=== PATIENT | male | born 1940 | race Caucasian/White ===

== ENCOUNTER 2017-09-17 11:00 | Outpatient (CLI) | payer MEDICARE ==
[2017-09-17 12:50] LABS: #Lymphocytes 1.7 thou/uL (1.20-3.40); #Monocytes 0.4 thou/uL (0.11-0.59); #Neutrophils 1.7 thou/uL (1.40-6.50); %Basophils 0.6 % (0.0-1.0); %Eosinophils 0.8 % (0.0-10.0); %Lymphocytes 43.5 % (21.0-51.0); %Monocytes 10.4 % (0.0-10.0); %Neutrophils 44.8 % (42.0-75.0); Hemoglobin 12.9 g/dL (14.0-18.0); Mean Platelet Volume 8.1 fL (7.4-10.4); Platelet Count 209 thou/uL (130-400); RBC Distribution Width 11.6 % (11.5-14.5); Red Blood Cell (RBC) Count 3.68 mill/uL (4.70-6.10); White Blood Cell (WBC) Count 3.9 thou/uL (4.8-10.8)
[2017-09-17 12:53] LABS: Bilirubin Negative (Negative); Blood, Urine Negative (Negative); Clarity CLEAR (Clear); Glucose, Urine (Dipstick) Negative (Negative); Leukocyte Negative (Negative); Nitrite Negative (Negative); Protein, Urine (Dipstick) Negative (Neg-Trace); Specific Gravity, Urine 1.016 (1.002-1.036); Urobilinogen 0.2 mg/dL (0.2-1.0); pH, Urine 5.5 (5.0-9.0)
--- NOTE | 2017-09-17 12:55 | RAD ---
PA AND LATERAL CHEST: History: Pre op. FINDINGS: Heart size is within normal limits. Mediastinal structures appear unremarkable. The lungs are clear o f any infiltrative process. IMPRESSION: No active intrathoracic disease. POS: [facility]
[2017-09-17 12:57] LABS: INR-International Normal Ratio 1.7; Prothrombin Time 20.1 SEC (12.0-14.7)
[2017-09-17 13:01] LABS: Bacteria/HPF None Seen HPF (None Seen); Hyaline Casts/LPF 0-3 HYALINE CAST LPF (0-3 Hyaline); Pathc Cast-AUWi Flag 0.14 (0-2.49); RBC/HPF 0-3 HPF (0-3); Squamous Epithelial None Seen HPF (0-3); WBC/HPF None Seen HPF (0-3)
[2017-09-17 13:10] LABS: Anion Gap 8 mmol/L (10-20); BUN (Urea Nitrogen) 28 mg/dL (8.4-25.7); Calc. Creatinine Clearance 0 mL/min (70-130); Calcium 9.1 mg/dL (7.8-10.44); Carbon Dioxide 26 mmol/L (23-31); Chloride 108 mmol/L (98-107); Estimated GFR-MDRD 79; Glucose 100 mg/dL (83-110); Potassium 4.4 mmol/L (3.5-5.1); Sodium 138 mmol/L (136-145)
== END 2017-09-17 11:01 | disposition home or self-care (01) ==
LOC: LABBT 11:00
PROVIDERS: ATTEND Orthopaedic Surgery
DX: Z01.818 Encounter for other preprocedural examination (principal); M17.11 Unilateral primary osteoarthritis, right knee
CPT/HCPCS: 71046; 80048; 81001; 85025; 85610; 85730; 86850; 86900; 86901; 87081; 93005; 93010

== ENCOUNTER 2017-09-17 11:15 | Inpatient (IN) | payer MEDICARE ==
[2017-09-17 11:25] VITALS: BMI 28.7
[2017-09-21] MEDS ORDERED: Midazolam HCl 2 mg/2 ml Vial ONE (06:27)
[2017-09-21] MEDS ORDERED: Fentanyl 100 MCG/2 ML VIAL ONE (06:27)
[2017-09-21] MEDS ORDERED: Zolpidem Tartrate 5 MG TAB PO PRN ×2 (07:08→07:56)
[2017-09-21] MEDS ORDERED: HYDROcodone/Acetaminophen 10/325 mg Tablet PO PRN ×2 (07:08)
[2017-09-21] MEDS ORDERED: Acetaminophen 325 MG TAB PO PRN (07:08)
[2017-09-21] MEDS ORDERED: diphenhydrAMINE 25 MG CAP PO PRN (07:08)
[2017-09-21] MEDS ORDERED: Promethazine HCl 25 MG/ML VIAL IM PRN ×3 (07:08→10:03)
[2017-09-21] MEDS ORDERED: Fentanyl 100 MCG/2 ML VIAL SLOW IVP PRN ×2 (07:08)
[2017-09-21] MEDS ORDERED: Ondansetron HCl/PF 4 MG/2 ML Vial IVP PRN ×3 (07:08→10:03)
[2017-09-21] MEDS ORDERED: traMADol HCl 50 MG TAB PO PRN ×5 (07:08→09:20)
[2017-09-21] MEDS ORDERED: CEFAZOLIN/Water 2 GM/20 ML SYRINGE ONE (07:09)
[2017-09-21] MEDS ORDERED: Tranexamic Acid 1,000 MG in Sodium Chloride 0.9% 100 ML IVPB SCH (07:15)
[2017-09-21] MEDS ORDERED: Vancomycin HCl 1.5 GM in Sodium Chloride 0.9% 250 ML 300 ML IVPB SCH (07:15)
[2017-09-21] MEDS ORDERED: Fentanyl 100 MCG/2 ML VIAL IV PRN ×2 (07:57→09:18)
[2017-09-21] MEDS ORDERED: HYDROcodone/Acetaminophen 7.5/325 mg Tablet PO PRN (07:59)
[2017-09-21] MEDS ORDERED: Non-Formulary Item 1 EACH (Multivitamin [Multi-Vitamin Daily] 1 TABLET) PO SCH (09:00)
[2017-09-21] MEDS ORDERED: Enoxaparin Sodium 30 MG/0.3 ML SYRINGE SC SCH ×4 (09:00→21:00)
[2017-09-21] MEDS ORDERED: Lisinopril 20 MG TAB PO SCH (09:00)
[2017-09-21] MEDS ORDERED: Promethazine HCl 25 MG/ML VIAL SLOW IVP PRN (10:03)
[2017-09-21] MEDS ORDERED: Morphine 10 MG/ML VIAL ONE (10:13)
--- NOTE | 2017-09-21 12:12 | RAD ---
RIGHT KNEE 2 VIEWS: Date: 09/21/17 HISTORY: Total knee arthroplasty, postop. FINDINGS/IMPRESSION: There are recent postop changes of total knee arthroplasty in good position and alignment. Soft tissu e air is present. POS: [facility]
--- NOTE | 2017-09-21 12:38 | OP ---
DATE OF PROCEDURE: 09/21/2017 PREOPERATIVE DIAGNOSIS: End-stage tricompartmental osteoarthritis, right knee. POSTOPERATIVE DIAGNOSIS: End-stage tricompartmental osteoarthritis, right knee. OPERATIVE PROCEDURE: Cemented cruciate-sparing computer-assisted navigated right total knee arthropl sony. SURGEON: Michael Rice M.D. ELECTRICAL DESIGN ENGINEER: Immanuel Pedraza PA-C. ANESTHESIA: General via laryngeal mask airway augmented with indwelling femoral block and a single s hot sciatic block. ESTIMATED BLOOD LOSS: Less than 100 mL. COMPONENTS USED: [employer] Triathlon cemented cruciate-sparing primary size 6 femoral comp onent with a cemented cruciate sparing, primary size 6 tibial baseplate, 11 mm polyethylene fixed gian ring insert, and A38 patellar button. TOURNIQUET TIME: 54 minutes at 300 mmHg. DRAINS: None. SPECIMENS: None. COMPLICATIONS: None. COUNTS: Correct. INTAKE: 1000 mL of crystalloid. OUTPUT: None. No Perez was placed. INDICATIONS FOR SURGERY: Neri is a 77-year-old white male who has had progressive right knee pain amplified with standing and walking for the last 5-7 years. He has failed conservative management a nd elected to proceed with total knee arthroplasty as a definitive treatment of his pain. PROCEDURE IN DETAIL: After informed consent was obtained in the preoperative holding area. The chrystal ent was taken to the operative suite where general anesthesia was induced. Once adequate level of ge neral anesthesia was obtained, the patient was positioned and a well-padded tourniquet was placed agatha und the right proximal thigh. The right lower extremity was then prepped and draped in the usual jan rile fashion. Prior to exsanguination, a time out was called and all members of the surgical team ag jono upon site, surgeon, and patient. The extremity was then exsanguinated and the tourniquet was ra ised. A midline longitudinal incision was then made directly over the patella extending two fingerbr eadths above the superior pole of the patella and two fingerbreadths inferior to the inferior patella r pole of the patella. Deeper subcutaneous layers were dissected sharply and local bleeding was cont rolled with Bovie electrocautery. A quad tendon longitudinal split was then made sharply and a media n parapatellar arthrotomy was carried out both sharp and with Bovie electrocautery, carried down to o ne fingerbreadth medial to the tibial tubercle. The knee was then placed into flexion and the patell a was everted nicely, and a copious fat pad ectomy was performed allowing for greater exposure of the tibia. The computer-assisted distal femoral fiducial was then placed and pinned firmly, and the dis jolly femoral cutting guide was pinned firmly into place. The oscillating saw was then used to remove the appropriate amount of bone. The 4-in-1 cutting block was then placed on the distal femur and the oscillating saw was used to remove the appropriate amount of bone off of the anterior, posterior, an d chamfer cuts. After completion of the chamfer cuts, the box-cutting guide was placed, malleted fir mly into place and pinned securely, and an osteotome was used to make the distal cut and the oscillat ing saw was then used to make the medial and lateral box cuts. This came out quite nicely and was re moved with Bovie electrocautery, and the oscillating saw was then used to broaden the lateral medial andres of the box cut. After completion of bone cuts, the anterior cruciate ligament was resected sha rply and the posterior cruciate ligament retractor was placed and the tibia was subluxed for better e xposure. Partial meniscectomies were carried out, and the tibial computer-assisted fiducial was pinn ed, and the cutting guide was placed. Oscillating saw was then used to remove the bone with Hohmann retractors used to take care and protect the collateral ligaments. After the tibial resection was pe rformed, a laminar director call was placed in between the freshened bone cuts. The knee placed at 90 deg javi and further bilateral meniscectomies were carried out, and the curved osteotome and curettage wa s used to remove any excess bone spurs in the posterior compartment. The trial femoral component, ti bial baseplate were placed with the appropriate polyethylene trial insert with an appropriate polyeth ylene spacer and patellar button. The knee was taken through full range of motion with flexion and e xtension from 0-90 degrees and patellar broach squarely in the trochlea without any squinting or sub luxation noted. The knee was also stable to varus and valgus stressing at 0, 15, 45, and 90 degrees of flexion. The drawer was negative. All trial components were then removed and the keel punch was u sed to provide the appropriate defect in the tibia with a mallet. The freshened bone cuts were copio usly irrigated with pulsatile lavage of about 1-1/2 liters to remove all excess debris. The freshene d bone cuts were then dried and with suction and lap sponge. The knee was placed in flexion and retr actors were placed to provide access to all bone cuts. Tobramycin impregnated methyl methacrylate ce ment was then placed on the freshened bone cuts and implants which were malleted firmly into place. Curettage and Burdett elevators were used to remove any excess bone cement. The knee was placed into f ull extension and the patellar button was placed under compression, and the cement was allowed to cur e. Once completed, the components were again taken through full range of motion and copious irrigati on of the knee was carried out with another liter of normal saline. All components were inspected fu lly with full range of motion and varus and valgus stressing. There was no laxity noted and full exte nsion was observed clinically. Primary closure was accomplished with #2 interrupted Vicryl stitch of the arthrotomy defect. This was oversewn with a #2 running Quill barbed stitch. The subcutaneous l corey was then closed with a running 0 barbed Monocryl stitch and skin closure accomplished with a run raman subcuticular 3-0 Monocryl barbed Quill stitch and augmented with cement on the skin. Tourniquet was lowered. Good spontaneous return of distal pulses was noted clinically and a sterile dressing w as applied to the incision. The procedure was terminated without any complications. The patient was awakened in the operative suite and taken to the recovery room in stable condition.
[2017-09-21] MEDS ORDERED: Ropivacaine 0.2% HCl/PF (40 MG/20 ML VIAL) ONE (13:48)
[2017-09-21] MEDS ORDERED: Ropivacaine 0.5% HCl/PF (150 MG/30 ML VIAL) ONE (13:48)
[2017-09-21] MEDS ORDERED: Bupivacaine/Epinephrine 0.25% 30 ML VIAL ONE (13:48)
[2017-09-21] MEDS ORDERED: hydrALAZINE 20 MG/ML VIAL SLOW IVP PRN (13:59)
[2017-09-21] MEDS ORDERED: Polyethylene Glycol 3350 17 GM Packet PO PRN (14:03)
[2017-09-21] MEDS ORDERED: Lidocaine 1% PF 5 ML VIAL ONE (14:20)
[2017-09-21] MEDS ORDERED: PROPOFOL 200 MG/20 ML VIAL ONE (14:20)
[2017-09-21] MEDS ORDERED: ePHEDrine/0.9% NaCl/PF SYRINGE 50 mg/10 ml ONE (14:20)
[2017-09-21] MEDS: Aspirin 81 mg Enteric Coated Tablet PO SCH ×2 (14:26→21:37)
[2017-09-21] MEDS: Sodium Chloride 0.9% 1,000 ML IV SCH ×2 (15:04→17:31)
[2017-09-21] MEDS: Ferrous Gluconate 324 MG TAB PO SCH ×2 (15:05→21:36)
[2017-09-21] MEDS: Multivitamin W/ Minerals 1 TAB PO SCH (15:06)
[2017-09-21] MEDS: Senokot S 8.6-50 MG TAB PO SCH ×2 (15:06→21:36)
[2017-09-21] MEDS: CEFAZOLIN/Water 2 GM/20 ML SYRINGE SLOW IVP SCH (17:21)
[2017-09-21] MEDS: Warfarin Sodium 7.5 MG TAB PO SCH (17:23)
--- NOTE | 2017-09-21 17:32 | PDOC.PN ---
- Subjective Encounter Start Date: 09/21/17 Encounter Start Time: 14:00 Patient seen and examined for danay mngt. No new complaints. Pain over the surgical site. No CP/SOB - Objective MAR Reviewed: Yes Vital Signs & Weight: Weight Weight 200 lb Additional Labs: Laboratory Tests 09/17/17 12:15 Sodium 138 Potassium 4.4 Creatinine 0.93 EKG Reviewed by me: Yes (SR) Phys Exam - Physical Examination Constitutional: NAD Respiratory: no wheezing, no rales, no rhonchi Cardiovascular: RRR, no rub no heaves/pulsations Gastrointestinal: soft, non-tender, positive bowel sounds Musculoskeletal: no edema Neurological: moves all 4 limbs Dx/Plan (1) HTN (hypertension) Code(s): I10 - ESSENTIAL (PRIMARY) HYPERTENSION Status: Chronic Plan: Cont Lisinopril at 20 mg BID with holding parameters (2) GERD (gastroesophageal reflux disease) Code(s): K21.9 - GASTRO-ESOPHAGEAL REFLUX DISEASE WITHOUT ESOPHAGITIS Status: Chronic Plan: Cont PPI (3) H/O venous thrombosis and embolism Code(s): Z86.718 - PERSONAL HISTORY OF OTHER VENOUS THROMBOSIS AND EMBOLISM Status: Chronic Plan: Warfarin restarted today. Also on Lovenox and ASA per Ortho. 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 DPOA- self/family -: Thank you for this consultation. Will follow Review of Systems - Review of Systems Constitutional: negative: fever, chills, sweats, weakness, malaise, other Respiratory: negative: Cough, Dry, Shortness of Breath, Hemoptysis, SOB with Excertion, Pleuritic Pain, Sputum, Wheezing Cardiovascular: negative: chest pain, palpitations, orthopnea, paroxysmal nocturnal dyspnea, edema, light headedness, other Gastrointestinal: negative: Nausea, Vomiting, Abdominal Pain, Diarrhea, Constipation, Melena, Hematochezia, Other - Medications/Allergies Allergies/Adverse Reactions: Allergies Allergy/AdvReac Type Severity Reaction Status Date / Time almond Allergy Verified 09/17/17 11:28 sulfamethoxazole Allergy Rash Verified 09/17/17 11:28 [From Bactrim] trimethoprim [From Bactrim] Allergy Rash Verified 09/17/17 11:28 Medications: Current Medications Acetaminophen (Tylenol) 650 mg PO Q4H PRN PRN Reason: EATON/ T > 101F; Mild Pain (1-3) Hydrocodone Bitart/Acetaminophen ([place] 7.5/325) 1 tab PO Q4H PRN PRN Reason: Mild Pain (1-3) Last Admin: 09/21/17 14:43 Dose: 1 tab Hydrocodone Bitart/Acetaminophen ([place] 7.5/325) 2 tab PO Q4H PRN PRN Reason: Moderate Pain (4-6) Aspirin (Ecotrin) 81 mg PO BID [facility] Last Admin: 09/21/17 14:26 Dose: Not Given Cefazolin Sodium (Ancef) 2 gm SLOW IVP 1500,2300 [facility] Stop: 09/21/17 23:01 Last Admin: 09/21/17 17:21 Dose: 2 gm Diphenhydramine HCl (Benadryl) 25 mg PO Q6H PRN PRN Reason: Itching Enoxaparin Sodium (Lovenox) 30 mg SC Q12HR [facility] Enoxaparin Sodium (Lovenox) 30 mg SC NOW [facility] Stop: 09/21/17 19:15 Last Admin: 09/21/17 17:21 Dose: 30 mg Fentanyl (Sublimaze) 50 mcg IV Q1H PRN PRN Reason: BREAKTHROUGH PAIN Ferrous Gluconate (Fergon) 324 mg PO BID [facility] Last Admin: 09/21/17 15:05 Dose: Not Given Hydralazine HCl (Apresoline) 10 mg SLOW IVP Q4H PRN PRN Reason: SBP Greater Than 180 Vancomycin HCl 1.5 gm/ Sodium (Chloride) 300 mls @ 200 mls/hr IVPB WILLCALL [facility] Sodium Chloride (Normal Saline 0.9%) 1,000 mls @ 100 mls/hr IV .Q10H [facility] Last Admin: 09/21/17 15:04 Dose: Not Given Bupivacaine HCl 50 ml/ Sodium (Chloride) 100 mls @ 0 mls/hr NERVE BLCK INF [facility] PRN Reason: As Directed Iron/Minerals/Multivitamins (Theragran M) 1 tab PO DAILY [facility] Last Admin: 09/21/17 15:06 Dose: Not Given Ketorolac Tromethamine (Toradol) 15 mg IVP Q6H PRN PRN Reason: Moderate Pain (4-6) Stop: 09/24/17 07:57 Lisinopril (Zestril) 20 mg PO BID [facility] Melatonin (Melatonin) 10 mg PO HS [facility] Ondansetron HCl (Zofran) 4 mg IVP Q6H PRN PRN Reason: Nausea/Vomiting Polyethylene Glycol (Miralax) 17 gm PO DAILY PRN PRN Reason: Constipation Promethazine HCl (Phenergan) 12.5 mg IM Q4H PRN PRN Reason: Nausea/Vomiting Senna/Docusate Sodium (Senokot S) 2 tab PO BID [facility] Last Admin: 09/21/17 15:06 Dose: Not Given Sodium Chloride (Flush - Normal Saline) 10 ml IVF PRN PRN PRN Reason: Saline Flush Tramadol HCl (Ultram) 50 mg PO Q6H PRN PRN Reason: Mild Pain (1-3) Tramadol HCl (Ultram) 100 mg PO Q6H PRN PRN Reason: Moderate Pain 4-6 Warfarin Sodium (Coumadin) 7.5 mg PO 1700 [facility] Last Admin: 09/21/17 17:23 Dose: 7.5 mg Zolpidem Tartrate (Ambien) 5 mg PO HSPRN PRN PRN Reason: Insomnia
[2017-09-21] MEDS ORDERED: Melatonin 3 MG TAB PO SCH ×2 (21:00→22:00)
[2017-09-21] MEDS: Lisinopril 20 MG TAB PO SCH (21:35)
[2017-09-21] MEDS: HYDROcodone/Acetaminophen 7.5/325 mg Tablet PO PRN (21:36)
[2017-09-22] MEDS: Bupivacaine 0.5% 50 ML in Sodium Chloride 0.9% 50 ML NERVE BLCK SCH ×2 (00:21→14:29)
[2017-09-22] MEDS: Ketorolac Tromethamine 30 MG/ML VIAL IVP PRN ×2 (00:41→12:09)
[2017-09-22] MEDS: CEFAZOLIN/Water 2 GM/20 ML SYRINGE SLOW IVP SCH (00:48)
[2017-09-22] MEDS: Sodium Chloride 0.9% 1,000 ML IV SCH ×3 (05:36→22:48)
[2017-09-22 05:54] LABS: Hemoglobin 11.1 g/dL (14.0-18.0); Mean Corpuscular HGB CONC 33.6 g/dL (32.0-36.0); Mean Corpuscular Hemoglobin 34.2 pg (27.0-31.0); Mean Platelet Volume 8.2 fL (7.4-10.4); Platelet Count 174 thou/uL (130-400); RBC Distribution Width 11.9 % (11.5-14.5); Red Blood Cell (RBC) Count 3.25 mill/uL (4.70-6.10); White Blood Cell (WBC) Count 5.3 thou/uL (4.8-10.8)
[2017-09-22 06:11] LABS: Prothrombin Time 13.7 SEC (12.0-14.7)
[2017-09-22] MEDS: HYDROcodone/Acetaminophen 7.5/325 mg Tablet PO PRN ×4 (08:23→21:06)
[2017-09-22] MEDS: Aspirin 81 mg Enteric Coated Tablet PO SCH ×2 (08:24→21:05)
[2017-09-22] MEDS: Senokot S 8.6-50 MG TAB PO SCH ×2 (08:24→21:05)
[2017-09-22] MEDS: Lisinopril 20 MG TAB PO SCH ×2 (08:25→21:05)
[2017-09-22] MEDS: Enoxaparin Sodium 30 MG/0.3 ML SYRINGE SC SCH ×2 (08:25→21:05)
[2017-09-22] MEDS: Ferrous Gluconate 324 MG TAB PO SCH ×2 (08:25→21:05)
[2017-09-22] MEDS: Multivitamin W/ Minerals 1 TAB PO SCH (08:25)
[2017-09-22] MEDS: Warfarin Sodium 7.5 MG TAB PO SCH (16:44)
--- NOTE | 2017-09-22 20:16 | PDOC.PN ---
- Subjective Encounter Start Date: 09/22/17 Encounter Start Time: 18:30 Patient seen and examined for med mngt. Rt knee discomfort. No new complaints. No overnight events - Objective MAR Reviewed: Yes Vital Signs & Weight: Vital Signs (12 hours) Temp Pulse Resp BP BP Pulse Ox 09/22/17 16:01 98.1 F 76 16 131/60 92 L 09/22/17 11:52 97.8 F 75 18 162/70 H 98 09/22/17 08:30 99.1 F 70 16 94 L 09/22/17 08:25 156/70 H Weight Admit Weight 200 lb Weight 200 lb I&O: 09/21/17 09/22/17 09/23/17 06:59 06:59 06:59 Intake Total 1776 Output Total 600 Balance 1176 Result Diagrams: 09/22/17 05:21 Phys Exam - Physical Examination Constitutional: NAD Respiratory: no wheezing, no rhonchi Cardiovascular: RRR, no rub Gastrointestinal: soft, positive bowel sounds Musculoskeletal: no edema Neurological: moves all 4 limbs Dx/Plan (1) HTN (hypertension) Code(s): I10 - ESSENTIAL (PRIMARY) HYPERTENSION Status: Chronic Plan: Cont Lisinopril (2) GERD (gastroesophageal reflux disease) Code(s): K21.9 - GASTRO-ESOPHAGEAL REFLUX DISEASE WITHOUT ESOPHAGITIS Status: Chronic Plan: Add Pepcid (3) H/O venous thrombosis and embolism Code(s): Z86.718 - PERSONAL HISTORY OF OTHER VENOUS THROMBOSIS AND EMBOLISM Status: Chronic Plan: Cont Warfarin with Lovenox 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 Review of Systems - Review of Systems Respiratory: negative: Cough, Dry, Shortness of Breath, Hemoptysis, SOB with Excertion, Pleuritic Pain, Sputum, Wheezing Cardiovascular: negative: chest pain, palpitations, orthopnea, paroxysmal nocturnal dyspnea, edema, light headedness, other Gastrointestinal: negative: Nausea, Vomiting, Abdominal Pain, Diarrhea, Constipation, Melena, Hematochezia, Other - Medications/Allergies Allergies/Adverse Reactions: Allergies Allergy/AdvReac Type Severity Reaction Status Date / Time almond Allergy Verified 09/17/17 11:28 sulfamethoxazole Allergy Rash Verified 09/17/17 11:28 [From Bactrim] trimethoprim [From Bactrim] Allergy Rash Verified 09/17/17 11:28 Medications: Current Medications Acetaminophen (Tylenol) 650 mg PO Q4H PRN PRN Reason: EATON/ T > 101F; Mild Pain (1-3) Hydrocodone Bitart/Acetaminophen ([place] 7.5/325) 1 tab PO Q4H PRN PRN Reason: Mild Pain (1-3) Last Admin: 09/21/17 14:43 Dose: 1 tab Hydrocodone Bitart/Acetaminophen ([place] 7.5/325) 2 tab PO Q4H PRN PRN Reason: Moderate Pain (4-6) Last Admin: 09/22/17 16:44 Dose: 2 tab Aspirin (Ecotrin) 81 mg PO BID [facility] Last Admin: 09/22/17 08:24 Dose: 81 mg Diphenhydramine HCl (Benadryl) 25 mg PO Q6H PRN PRN Reason: Itching Enoxaparin Sodium (Lovenox) 30 mg SC Q12HR [facility] Last Admin: 09/22/17 08:25 Dose: 30 mg Fentanyl (Sublimaze) 50 mcg IV Q1H PRN PRN Reason: BREAKTHROUGH PAIN Last Admin: 09/22/17 12:08 Dose: 50 mcg Ferrous Gluconate (Fergon) 324 mg PO BID [facility] Last Admin: 09/22/17 08:25 Dose: 324 mg Hydralazine HCl (Apresoline) 10 mg SLOW IVP Q4H PRN PRN Reason: SBP Greater Than 180 Vancomycin HCl 1.5 gm/ Sodium (Chloride) 300 mls @ 200 mls/hr IVPB WILLCALL [facility] Sodium Chloride (Normal Saline 0.9%) 1,000 mls @ 100 mls/hr IV .Q10H [facility] Last Admin: 09/22/17 16:40 Dose: Not Given Bupivacaine HCl 50 ml/ Sodium (Chloride) 100 mls @ 0 mls/hr NERVE BLCK INF [facility] PRN Reason: As Directed Last Admin: 09/22/17 14:29 Dose: 100 mls Iron/Minerals/Multivitamins (Theragran M) 1 tab PO DAILY [facility] Last Admin: 09/22/17 08:25 Dose: 1 tab Ketorolac Tromethamine (Toradol) 15 mg IVP Q6H PRN PRN Reason: Moderate Pain (4-6) Stop: 09/24/17 07:57 Last Admin: 09/22/17 12:09 Dose: 15 mg Lisinopril (Zestril) 20 mg PO BID [facility] Last Admin: 09/22/17 08:25 Dose: 20 mg Melatonin (Melatonin) 9 mg PO HS [facility] Ondansetron HCl (Zofran) 4 mg IVP Q6H PRN PRN Reason: Nausea/Vomiting Polyethylene Glycol (Miralax) 17 gm PO DAILY PRN PRN Reason: Constipation Promethazine HCl (Phenergan) 12.5 mg IM Q4H PRN PRN Reason: Nausea/Vomiting Senna/Docusate Sodium (Senokot S) 2 tab PO BID [facility] Last Admin: 09/22/17 08:24 Dose: 2 tab Sodium Chloride (Flush - Normal Saline) 10 ml IVF PRN PRN PRN Reason: Saline Flush Tramadol HCl (Ultram) 50 mg PO Q6H PRN PRN Reason: Mild Pain (1-3) Tramadol HCl (Ultram) 100 mg PO Q6H PRN PRN Reason: Moderate Pain 4-6 Warfarin Sodium (Coumadin) 7.5 mg PO 1700 [facility] Last Admin: 09/22/17 16:44 Dose: 7.5 mg Zolpidem Tartrate (Ambien) 5 mg PO HSPRN PRN PRN Reason: Insomnia
[2017-09-22] MEDS: Melatonin 3 MG TAB PO SCH (21:04)
[2017-09-23] MEDS: HYDROcodone/Acetaminophen 7.5/325 mg Tablet PO PRN ×5 (01:18→23:45)
[2017-09-23 04:37] LABS: Hemoglobin 10.5 g/dL (14.0-18.0); Mean Corpuscular HGB CONC 34.1 g/dL (32.0-36.0); Mean Corpuscular Hemoglobin 34.8 pg (27.0-31.0); Mean Platelet Volume 8.5 fL (7.4-10.4); Platelet Count 154 thou/uL (130-400); Red Blood Cell (RBC) Count 3.01 mill/uL (4.70-6.10); White Blood Cell (WBC) Count 6.4 thou/uL (4.8-10.8)
[2017-09-23] MEDS: Bupivacaine 0.5% 50 ML in Sodium Chloride 0.9% 50 ML NERVE BLCK SCH (05:45)
[2017-09-23 08:20] LABS: INR-International Normal Ratio 1.2; Prothrombin Time 15.6 SEC (12.0-14.7)
[2017-09-23] MEDS: Ferrous Gluconate 324 MG TAB PO SCH ×2 (08:46→20:39)
[2017-09-23] MEDS: Lisinopril 20 MG TAB PO SCH ×2 (08:46→20:39)
[2017-09-23] MEDS: Famotidine 20 MG TAB PO SCH (08:46)
[2017-09-23] MEDS: Multivitamin W/ Minerals 1 TAB PO SCH (08:46)
[2017-09-23] MEDS: Polyethylene Glycol 3350 17 GM Packet PO SCH (08:46)
[2017-09-23] MEDS: Enoxaparin Sodium 30 MG/0.3 ML SYRINGE SC SCH ×2 (08:47→20:39)
[2017-09-23] MEDS: Senokot S 8.6-50 MG TAB PO SCH ×2 (08:47→20:39)
[2017-09-23] MEDS: Aspirin 81 mg Enteric Coated Tablet PO SCH ×2 (08:47→20:39)
[2017-09-23] MEDS: Sodium Chloride 0.9% 1,000 ML IV SCH ×3 (11:35→20:52)
--- NOTE | 2017-09-23 15:21 | ULT ---
RIGHT LOWER EXTREMITY VENOUS ULTRASOUND: COMPARISON: None. HISTORY: Right lower extremity swelling/edema. The patient has an extensive history of DVTs and pulmonary emb olisms. TECHNIQUE: Multiplanar, gamez scale, and color Doppler images were obtained in a right lower extremity venous ult rasound. Spectral analysis of the Doppler waveforms was performed. FINDINGS: The right common femoral vein and profunda femoral vein demonstrate normal flow and compression witho ut evidence of thrombus. The proximal aspect of the right superficial femoral vein is normal in appe arance without visible thrombus and demonstrates normal flow and compression. The mid portion of the right superficial femoral vein shows echogenic material along the deep aspect of the femoral vein an d in the distal aspect of the right superficial femoral vein, there is echogenic material within the center of the lumen of the vein. These echogenic structures may represent recanalized thrombus or no nocclusive thrombi within the superficial femoral vein. The popliteal vein is unremarkable. The posterior tibial vein and greater saphenous vein are patent. IMPRESSION: Echogenic material within the superficial femoral vein along the mid aspect and distally are likely a reas of recanalized thrombus. Nonocclusive deep vein thrombosis are also a possibility. POS: [facility]
[2017-09-23] MEDS: Warfarin Sodium 7.5 MG TAB PO SCH (17:15)
[2017-09-23] MEDS: Melatonin 3 MG TAB PO SCH (20:40)
[2017-09-24 04:59] LABS: Hemoglobin 10.5 g/dL (14.0-18.0); Mean Corpuscular Hemoglobin 33.9 pg (27.0-31.0); Mean Platelet Volume 8.1 fL (7.4-10.4); Platelet Count 182 thou/uL (130-400); Red Blood Cell (RBC) Count 3.09 mill/uL (4.70-6.10); White Blood Cell (WBC) Count 5.2 thou/uL (4.8-10.8)
[2017-09-24] MEDS: HYDROcodone/Acetaminophen 7.5/325 mg Tablet PO PRN ×2 (05:08→10:53)
[2017-09-24 06:39] LABS: INR-International Normal Ratio 1.3; Prothrombin Time 15.9 SEC (12.0-14.7)
[2017-09-24] MEDS: Lisinopril 20 MG TAB PO SCH (09:27)
[2017-09-24] MEDS: Senokot S 8.6-50 MG TAB PO SCH (09:28)
[2017-09-24] MEDS: Polyethylene Glycol 3350 17 GM Packet PO SCH (09:28)
[2017-09-24] MEDS: Multivitamin W/ Minerals 1 TAB PO SCH (09:28)
[2017-09-24] MEDS: Aspirin 81 mg Enteric Coated Tablet PO SCH (09:28)
[2017-09-24] MEDS: Ferrous Gluconate 324 MG TAB PO SCH (09:28)
[2017-09-24] MEDS: Enoxaparin Sodium 30 MG/0.3 ML SYRINGE SC SCH (09:28)
[2017-09-24] MEDS: Famotidine 20 MG TAB PO SCH (09:28)
[2017-09-24 13:26] VITALS: BP 167/63; TEMP 98.2
== END 2017-09-24 13:46 | disposition home or self-care (01) | DRG 470 ==
LOC: SURG A 09-21 05:51 → SJJU 09-21 12:54
PROVIDERS: ADMIT Orthopaedic Surgery; ATTEND Orthopaedic Surgery
PROC: 0SRC0J9 Replacement of Right Knee Joint with Synthetic Substitute, Cemented, Open Approach (ICD-10-PCS; principal; 2017-09-21)
DX: M17.11 Unilateral primary osteoarthritis, right knee (principal); I10 Essential (primary) hypertension; K21.9 Gastro-esophageal reflux disease without esophagitis; Z86.73 Personal history of transient ischemic attack (TIA), and cerebral infarction without residual deficits
CPT/HCPCS: 36415; 85027; 85610; C1713; C1776; G8978-GP-CK; G8979-GP-CJ; J1650; J1885; J2001; J2250; J2270; J2704; J2795; J3010; J3370; J3490; J7050

== ENCOUNTER 2018-11-14 10:07 | Outpatient (CLI) | payer MEDICARE ==
[2018-11-14 11:19] LABS: #Eosinphils 0.1 thou/uL (0.0-0.7); #Lymphocytes 1.5 thou/uL (1.20-3.40); #Monocytes 0.4 thou/uL (0.11-0.59); #Neutrophils 1.4 thou/uL (1.40-6.50); %Basophils 0.5 % (0.0-1.0); %Eosinophils 1.7 % (0.0-10.0); %Lymphocytes 44.6 % (21.0-51.0); %Monocytes 10.9 % (0.0-10.0); %Neutrophils 42.3 % (42.0-75.0); Hemoglobin 12.9 g/dL (14.0-18.0); Mean Corpuscular HGB CONC 33.6 g/dL (32.0-36.0); Mean Corpuscular Hemoglobin 34.1 pg (27.0-31.0); Platelet Count 222 thou/uL (130-400); RBC Distribution Width 11.8 % (11.5-14.5); Red Blood Cell (RBC) Count 3.78 mill/uL (4.70-6.10); White Blood Cell (WBC) Count 3.3 thou/uL (4.8-10.8)
[2018-11-14 11:49] LABS: ALT (SGPT) 20 U/L (8-55); AST (SGOT) 19 U/L (5-34); Albumin 4.6 g/dL (3.4-4.8); Alkaline Phosphatase 76 U/L (40-150); Anion Gap 11 mmol/L (10-20); BUN (Urea Nitrogen) 23 mg/dL (8.4-25.7); Bilirubin, Total 0.3 mg/dL (0.2-1.2); Calc. Creatinine Clearance 0 mL/min (70-130); Calcium 9.2 mg/dL (7.8-10.44); Carbon Dioxide 24 mmol/L (23-31); Chloride 108 mmol/L (98-107); Estimated GFR-MDRD 76; Globulin 2.3 g/dL (2.4-3.5); Glucose 98 mg/dL (83-110); Potassium 4.9 mmol/L (3.5-5.1); Protein, Total 6.9 g/dL (5.8-8.1); Sodium 138 mmol/L (136-145)
== END 2018-11-14 10:08 | disposition home or self-care (01) ==
LOC: LABBT 10:07
PROVIDERS: ATTEND Surgery
DX: Z01.818 Encounter for other preprocedural examination (principal); K40.20 Bilateral inguinal hernia, without obstruction or gangrene, not specified as recurrent
CPT/HCPCS: 80053; 85025; 93005; 93010

== ENCOUNTER 2018-11-18 05:45 | Day surgery (SDC) | payer MEDICARE ==
[2018-11-14 10:28] VITALS: BMI 28.5
[2018-11-18] MEDS ORDERED: Lidocaine 2% Jelly 5 ML TUBE ONE (06:08)
[2018-11-18] MEDS ORDERED: Fentanyl 100 MCG/2 ML VIAL ONE ×2 (06:08→09:38)
[2018-11-18] MEDS ORDERED: Bupivacaine/Epinephrine 0.25% 30 ML VIAL ONE ×2 (06:48)
[2018-11-18 06:58] LABS: PTT 25.6 SEC (22.9-36.1); Prothrombin Time 12.8 SEC (12.0-14.7)
[2018-11-18] MEDS ORDERED: HYDROcodone/Acetaminophen 5/325 mg Tablet ONE (11:52)
--- NOTE | 2018-11-18 12:29 | OP ---
DATE OF PROCEDURE: 11/18/2018 PREOPERATIVE DIAGNOSIS: Bilateral inguinal hernia. PROCEDURE PERFORMED: Bilateral inguinal hernia repair with mesh. INDICATIONS: A 78-year-old male, who presented with a painful right inguinal hernia, was found to have left inguinal hernia as well. FINDINGS: A large right inguinal hernia, smaller direct left inguinal hernia. DESCRIPTION OF PROCEDURE: After informed consent was obtained, the patient was taken to the operating room, given general mask anesthesia, placed in supine position. His groin area was prepped and draped in usual fashion. Local anesthesia was infiltrated subcutaneously and deep. A transverse right inguinal incision was performed. Subcu was divided sharply. The fascia external oblique was incised in the direction of its fibers through the external ring. The spermatic cord isolated with a Aarti drain. Cremasteric fibers . There was no indirect component. There was a very large direct inguinal hernia. This was circumscribed and reduced. Reduction maintained with a PHS hernia system, placed in the preperitoneal space. Then, the anterior layer was spread out, sutured to the pubic tubercle medially, tucked under the external oblique fascia laterally. A notch was cut out for the spermatic cord. Hemostasis was achieved. The cord placed anatomically. The external oblique fascia was closed over the cord with a running 3-0 Vicryl. Mary was closed with interrupted 3-0 Vicryl, and the skin was closed with running subcuticular 4-0 Rapide. Steri-Strips applied, sterile bandage applied. Then, the left side was approached again. Local anesthesia was infiltrated subcutaneously and deep. A transverse left inguinal incision performed. Subcu was divided sharply. External oblique fascia was opened in the direction of its fibers through the external ring. Spermatic cord isolated with Aarti drain. There was a smaller direct inguinal hernia. No indirect component. There was a small cord lipoma that was removed. The hernia was circumscribed and reduced. Reduction maintained with a PHS hernia system. The posterior layer placed in the preperitoneal space, anterior was laid out, sutured to the pubic tubercle medially, tucked under the external oblique fascia laterally. Hemostasis was assured. The external oblique fascia was closed over the cord. Mary was closed with interrupted 3-0 Vicryl, and the skin was closed with a running subcuticular 4-0 Rapide. Steri-Strips applied, sterile bandage applied. The patient tolerated the procedure well, transferred to Recovery in good condition. Sponge and needle count verified correct x2. Job ID: [id number]
== END 2018-11-18 12:10 | disposition home or self-care (01) ==
LOC: SDC 05:45
PROVIDERS: ATTEND Surgery
PROC: 0YUA0JZ Supplement Bilateral Inguinal Region with Synthetic Substitute, Open Approach (ICD-10-PCS; principal; 2018-11-18)
DX: K40.20 Bilateral inguinal hernia, without obstruction or gangrene, not specified as recurrent (principal); Z88.1 Allergy status to other antibiotic agents; Z88.2 Allergy status to sulfonamides; Z91.018 Allergy to other foods
CPT/HCPCS: 49505; 85610; 85730; C1781; J0690; J3010

== ENCOUNTER 2020-02-14 09:59 | Outpatient (CLI) | payer MEDICARE ==
[~2020-02-14 09:59] MED LIST: Magnevist 469MG/ML 20 ML VIAL ONE
--- NOTE | 2020-02-14 11:46 | MRI ---
MRI BRAIN WITH AND WITHOUT CONTRAST: DATE: 02/14/2020 HISTORY: 79-year-old male with tremors and generalized weakness COMPARISON: none TECHNIQUE: Multiplanar, multisequence MRI of the brain performed pre- and post-IV injection of gadolinium based contrast agent. FINDINGS: Small region of encephalomalacia and gliosis at the right occipital cortex. Very small old lacunar infarction in left thalamus. Multiple tiny old lacunar infarctions in body of right caudate nucleus, and a few in the adjacent rig ht upper insula, and a few in the adjacent right periventricular white matter, carrera radiata, extending into centrum semiovale. A few tiny such signal abnormalities left insula and left caudate. Mild chronic ischemic white matter changes. No restricted diffusion: No acute infarction. No major recent or remote intra-axial hemorrhage. No obstructive hydrocephalus. Diffuse age-appropriate brain parenchymal volume loss. No dural venous sinus thrombosis, mass effect, midline shift, abnormal intra-axial enhancement, or ma ss. Lack of the normal flow void in the petrous segment of the left carotid siphon. Flow voids are mainta ined in the supraclinoid left internal carotid artery and M1 segment of left middle cerebral artery. IMPRESSION: 1) small old right occipital cortical infarction in the right posterior cerebral artery territory. 2) multiple tiny old lacunar infarctions in lenticulostriate branch territories of bilateral middle c erebral arteries, right greater than left (corpus striatum, plus upper insula). 3) age-related involutional changes and mild chronic ischemic white matter changes. 4) no acute intracranial findings.
== END 2020-02-14 10:00 | disposition home or self-care (01) ==
LOC: MRI 09:59
PROVIDERS: ATTEND Nurse Practitioner Acute Care
DX: R25.1 Tremor, unspecified (principal); I67.82 Cerebral ischemia; Z86.73 Personal history of transient ischemic attack (TIA), and cerebral infarction without residual deficits
CPT/HCPCS: 70553; A9579

== ENCOUNTER 2020-10-05 10:12 | Inpatient (IN) | payer MEDICARE ==
[2020-10-05 11:09] LABS: #Lymphocytes 1.2 thou/uL (1.20-3.40); #Monocytes 0.3 thou/uL (0.11-0.59); #Neutrophils 1.2 thou/uL (1.40-6.50); %Basophils 1.9 % (0.0-1.0); %Eosinophils 1.3 % (0.0-10.0); %Monocytes 9.6 % (0.0-10.0); %Neutrophils 43.2 % (42.0-75.0); Hemoglobin 12.8 g/dL (14.0-18.0); Mean Corpuscular HGB CONC 33.5 g/dL (32.0-36.0); Mean Corpuscular Hemoglobin 33.8 pg (27.0-31.0); Mean Platelet Volume 8.2 fL (7.4-10.4); Platelet Count 175 thou/uL (130-400); RBC Distribution Width 11.8 % (11.5-14.5); Red Blood Cell (RBC) Count 3.78 mill/uL (4.70-6.10); White Blood Cell (WBC) Count 2.7 thou/uL (4.8-10.8)
[2020-10-05 11:22] LABS: INR-International Normal Ratio 1.8; PTT 35.1 sec (22.9-36.1); Prothrombin Time 21.3 sec (12.0-14.7)
[2020-10-05 11:33] LABS: ALT (SGPT) 15 U/L (8-55); AST (SGOT) 18 U/L (5-34); Albumin 3.9 g/dL (3.4-4.8); Alkaline Phosphatase 74 U/L (40-110); Anion Gap 10 mmol/L (10-20); BUN (Urea Nitrogen) 15 mg/dL (8.4-25.7); Bilirubin, Total 0.4 mg/dL (0.2-1.2); Calc. Creatinine Clearance 0 mL/min (70-130); Calcium 8.6 mg/dL (7.8-10.44); Carbon Dioxide 26 mmol/L (23-31); Chloride 108 mmol/L (98-107); Globulin 2.5 g/dL (2.4-3.5); Glucose 153 mg/dL (83-110); Lipase 31 U/L (8-78); Protein, Total 6.4 g/dL (5.8-8.1); Sodium 140 mmol/L (136-145)
[2020-10-05] MEDS ORDERED: Aspirin Chewable 81 MG TAB ONE (12:24)
[2020-10-05] MEDS ORDERED: Nitroglycerin 2% Ointment 1 INCH/1 GM Packet ONE (12:24)
[2020-10-05] MEDS ORDERED: Acetaminophen 325 MG TAB PO PRN (13:00)
[2020-10-05] MEDS ORDERED: Ondansetron ODT 4 MG TAB PO PRN (13:00)
[2020-10-05 14:46] VITALS: BMI 29.5
[2020-10-05 14:53] LABS: Troponin I 0.013 ng/mL (< 0.028)
[2020-10-05] MEDS ORDERED: Lidocaine 2% Viscous Solution 10 ML, Aluminum & Magnesium Hydroxide 30 ML SSW SCH (16:30)
[2020-10-05 18:31] LABS: Troponin I 0.011 ng/mL (< 0.028)
[2020-10-05] MEDS ORDERED: Atorvastatin Calcium 40 MG TAB PO SCH (21:00)
[2020-10-05] MEDS: Lisinopril 20 MG TAB PO SCH (21:51)
[2020-10-05 21:54] LABS: SARS-CoV-2 PCR NAA for Saliva Not Detected (NotDetected)
[2020-10-05] MEDS: Nitroglycerin 2% Ointment 1 INCH/1 GM Packet TOP SCH (21:54)
[2020-10-06 05:45] LABS: Hemoglobin 12.2 g/dL (14.0-18.0); Mean Corpuscular HGB CONC 34.7 g/dL (32.0-36.0); Mean Corpuscular Hemoglobin 34.3 pg (27.0-31.0); Mean Corpuscular Volume 98.8 fL (78.0-98.0); RBC Distribution Width 11.7 % (11.5-14.5); Red Blood Cell (RBC) Count 3.57 mill/uL (4.70-6.10); White Blood Cell (WBC) Count 3.9 thou/uL (4.8-10.8)
[2020-10-06 05:46] LABS: #Eosinphils 0.1 thou/uL (0.0-0.7); #Lymphocytes 1.8 thou/uL (1.20-3.40); #Monocytes 0.4 thou/uL (0.11-0.59); #Neutrophils 1.7 thou/uL (1.40-6.50); %Basophils 0.5 % (0.0-1.0); %Eosinophils 1.4 % (0.0-10.0); %Lymphocytes 44.9 % (21.0-51.0); %Monocytes 10.2 % (0.0-10.0); Mean Platelet Volume 8.2 fL (7.4-10.4); Platelet Count 169 thou/uL (130-400)
[2020-10-06 06:03] LABS: INR-International Normal Ratio 2.1; Prothrombin Time 24.3 sec (12.0-14.7)
[2020-10-06 06:08] LABS: Anion Gap 9 mmol/L (10-20); BUN (Urea Nitrogen) 16 mg/dL (8.4-25.7); Calc. Creatinine Clearance 92 mL/min (70-130); Calcium 8.7 mg/dL (7.8-10.44); Carbon Dioxide 22 mmol/L (23-31); Cardiac Risk 4.9 (Less than 4.5); Chloride 112 mmol/L (98-107); Cholesterol 163 mg/dl (< 200 Desired); Glucose 99 mg/dL (83-110); HDL Cholesterol 33 mg/dL (>60 Neg Risk); LDL Cholesterol, Calculated 113 mg/dL; Sodium 139 mmol/L (136-145); Triglycerides 87 mg/dL (Less than 150)
[2020-10-06] MEDS: Nitroglycerin 2% Ointment 1 INCH/1 GM Packet TOP SCH ×2 (06:38→13:37)
[2020-10-06] MEDS: Lisinopril 20 MG TAB PO SCH (08:07)
[2020-10-06] MEDS ORDERED: Aspirin Chewable 81 MG TAB PO SCH (09:00)
[2020-10-06] MEDS ORDERED: Tamsulosin HCl 0.4 MG CAP PO SCH (09:00)
[2020-10-06] MEDS ORDERED: Amlodipine 5 MG TAB PO SCH (09:45)
[2020-10-06 12:31] VITALS: BP 138/74; TEMP 98.1
[2020-10-06] MEDS ORDERED: Nitroglycerin 0.4 MG TAB (25 Tab Bottle) SL PRN (14:19)
[2020-10-07] MEDS ORDERED: Amlodipine 5 MG TAB PO SCH (09:00)
== END 2020-10-06 15:02 | disposition home or self-care (01) | DRG 311 ==
LOC: ERS 10:12 → 2SE 12:30
PROVIDERS: ADMIT Family Medicine; ATTEND Internal Medicine
DX: I20.0 Unstable angina (principal); D68.59 Other primary thrombophilia; Z20.822 Contact with and (suspected) exposure to COVID-19; Z96.651 Presence of right artificial knee joint; N40.0 Benign prostatic hyperplasia without lower urinary tract symptoms; D72.819 Decreased white blood cell count, unspecified; G25.0 Essential tremor; M19.90 Unspecified osteoarthritis, unspecified site; K21.9 Gastro-esophageal reflux disease without esophagitis; Z88.2 Allergy status to sulfonamides; Z88.1 Allergy status to other antibiotic agents; Z79.01 Long term (current) use of anticoagulants; Z79.899 Other long term (current) drug therapy; Z86.711 Personal history of pulmonary embolism; Z86.718 Personal history of other venous thrombosis and embolism; Z90.49 Acquired absence of other specified parts of digestive tract
CPT/HCPCS: 36415; 71045; 80048; 80053; 80061; 83690; 84484; 85025; 85610; 85730; 90471; 90732; 93005; 94760; G0009; U0003; U0005

== ENCOUNTER 2020-10-13 05:44 | Inpatient (IN) | payer MEDICARE ==
[2020-10-13] MEDS ORDERED: Aspirin Chewable 81 MG TAB ONE (06:03)
[2020-10-13 06:14] LABS: #Eosinphils 0.1 thou/uL (0.0-0.7); #Lymphocytes 1.6 thou/uL (1.20-3.40); #Monocytes 0.5 thou/uL (0.11-0.59); #Neutrophils 1.4 thou/uL (1.40-6.50); %Basophils 0.5 % (0.0-1.0); %Eosinophils 1.4 % (0.0-10.0); %Lymphocytes 45.2 % (21.0-51.0); %Monocytes 13.6 % (0.0-10.0); %Neutrophils 39.2 % (42.0-75.0); Hemoglobin 13.3 g/dL (14.0-18.0); Mean Corpuscular HGB CONC 33.5 g/dL (32.0-36.0); Mean Corpuscular Hemoglobin 33.4 pg (27.0-31.0); Mean Platelet Volume 8.3 fL (7.4-10.4); Platelet Count 196 thou/uL (130-400); RBC Distribution Width 11.9 % (11.5-14.5); Red Blood Cell (RBC) Count 3.96 mill/uL (4.70-6.10); White Blood Cell (WBC) Count 3.6 thou/uL (4.8-10.8)
[2020-10-13 06:39] LABS: ALT (SGPT) 18 U/L (8-55); AST (SGOT) 23 U/L (5-34); Albumin 4.3 g/dL (3.4-4.8); Alkaline Phosphatase 75 U/L (40-110); Anion Gap 12 mmol/L (10-20); BUN (Urea Nitrogen) 21 mg/dL (8.4-25.7); Bilirubin, Total 0.5 mg/dL (0.2-1.2); Calc. Creatinine Clearance 0 mL/min (70-130); Calcium 9.3 mg/dL (7.8-10.44); Carbon Dioxide 24 mmol/L (23-31); Chloride 108 mmol/L (98-107); Globulin 2.7 g/dL (2.4-3.5); Glucose 111 mg/dL (83-110); Sodium 140 mmol/L (136-145)
[2020-10-13 07:40] LABS: INR-International Normal Ratio 3.5; PTT 47.9 sec (22.9-36.1); Prothrombin Time 36.3 sec (12.0-14.7)
[2020-10-13 08:02] LABS: SARS-CoV-2 NAA Rapid Test Not Detected (NotDetected)
[2020-10-13] MEDS ORDERED: Nitroglycerin 0.4 MG TAB (25 Tab Bottle) SL PRN (08:30)
[2020-10-13 10:48] VITALS: BMI 30.4
[2020-10-13] MEDS: Lisinopril 20 MG TAB PO SCH (21:03)
[2020-10-13] MEDS: Melatonin 3 MG TAB PO SCH (23:14)
[2020-10-14 05:02] LABS: INR-International Normal Ratio 2.8; PTT 40.2 sec (22.9-36.1); Prothrombin Time 30.4 sec (12.0-14.7)
[2020-10-14 05:05] LABS: #Eosinphils 0.1 thou/uL (0.0-0.7); #Lymphocytes 1.8 thou/uL (1.20-3.40); #Monocytes 0.4 thou/uL (0.11-0.59); #Neutrophils 1.6 thou/uL (1.40-6.50); %Basophils 0.6 % (0.0-1.0); %Eosinophils 2.1 % (0.0-10.0); %Monocytes 10.5 % (0.0-10.0); %Neutrophils 40.8 % (42.0-75.0); Mean Corpuscular HGB CONC 33.8 g/dL (32.0-36.0); Mean Corpuscular Hemoglobin 33.6 pg (27.0-31.0); Mean Corpuscular Volume 99.6 fL (78.0-98.0); Mean Platelet Volume 8.6 fL (7.4-10.4); Platelet Count 175 thou/uL (130-400); RBC Distribution Width 12.1 % (11.5-14.5); Red Blood Cell (RBC) Count 3.56 mill/uL (4.70-6.10); White Blood Cell (WBC) Count 3.8 thou/uL (4.8-10.8)
[2020-10-14 05:27] LABS: ALT (SGPT) 15 U/L (8-55); AST (SGOT) 18 U/L (5-34); Albumin 3.7 g/dL (3.4-4.8); Alkaline Phosphatase 59 U/L (40-110); Anion Gap 10 mmol/L (10-20); BUN (Urea Nitrogen) 16 mg/dL (8.4-25.7); Bilirubin, Total 0.4 mg/dL (0.2-1.2); Calc. Creatinine Clearance 89 mL/min (70-130); Calcium 8.7 mg/dL (7.8-10.44); Carbon Dioxide 24 mmol/L (23-31); Chloride 111 mmol/L (98-107); Globulin 2.4 g/dL (2.4-3.5); Glucose 116 mg/dL (83-110); Potassium 3.8 mmol/L (3.5-5.1); Protein, Total 6.1 g/dL (5.8-8.1); Sodium 141 mmol/L (136-145)
[2020-10-14] MEDS: Lisinopril 20 MG TAB PO SCH ×2 (08:33→21:11)
[2020-10-14] MEDS: Multivit, Therapeutic 1 TAB PO SCH (08:33)
[2020-10-14] MEDS: Melatonin 3 MG TAB PO SCH (21:11)
[2020-10-15 04:52] LABS: INR-International Normal Ratio 1.9; Prothrombin Time 22.6 sec (12.0-14.7)
[2020-10-15] MEDS ORDERED: Communication Order-Pharmacy FS SCH (08:00)
[2020-10-15] MEDS: Lisinopril 20 MG TAB PO SCH ×2 (08:43→21:14)
[2020-10-15] MEDS: Multivit, Therapeutic 1 TAB PO SCH (08:43)
[2020-10-15] MEDS ORDERED: Iopamidol 370 76% 100 ML VIAL ONE (08:48)
[2020-10-15] MEDS ORDERED: Tamsulosin HCl 0.4 MG CAP PO SCH (09:30)
[2020-10-15] MEDS ORDERED: Nitroglycerin 100MG/250ML BOT 250 ML ONE (11:48)
[2020-10-15] MEDS ORDERED: Heparin 10,000 UNITS/ 10 ML VIAL ONE (11:48)
[2020-10-15] MEDS ORDERED: Verapamil 5 MG/2 ML VIAL ONE (11:48)
[2020-10-15] MEDS ORDERED: Lidocaine 1% (PF) 30 ML VIAL ONE (11:48)
[2020-10-15] MEDS ORDERED: Bivalirudin 250 MG VIAL ONE (13:57)
[2020-10-15] MEDS ORDERED: Acetaminophen/Codeine 30-300mg Tablet PO PRN ×2 (14:25)
[2020-10-15] MEDS ORDERED: Sodium Chloride 0.9% 200 ML IV PRN (14:25)
[2020-10-15] MEDS ORDERED: Nitroglycerin 0.4 MG TAB (25 Tab Bottle) SL PRN (14:25)
[2020-10-15 15:59] LABS: Hemoglobin 12.8 g/dL (14.0-18.0); Platelet Count 185 thou/uL (130-400)
[2020-10-15] MEDS ORDERED: Warfarin Sodium 5 MG TAB PO SCH (17:00)
[2020-10-15] MEDS: Melatonin 3 MG TAB PO SCH (21:13)
[2020-10-16 07:32] VITALS: BP 122/69; TEMP 98.3
[2020-10-16] MEDS: Multivit, Therapeutic 1 TAB PO SCH (08:13)
[2020-10-16] MEDS: Lisinopril 20 MG TAB PO SCH (08:13)
[2020-10-16 09:34] LABS: INR-International Normal Ratio 1.6; Prothrombin Time 19.7 sec (12.0-14.7)
[2020-10-16] MEDS ORDERED: Tamsulosin HCl 0.4 MG CAP PO SCH (21:00)
== END 2020-10-16 10:10 | disposition home or self-care (01) | DRG 287 ==
LOC: ERS 05:44 → ERHOLD 07:09 → 2NO 10:45
PROVIDERS: ADMIT Student in an Organized Health Care Education/Training Program; ATTEND Family Medicine
PROC: 4A023N7 Measurement of Cardiac Sampling and Pressure, Left Heart, Percutaneous Approach (ICD-10-PCS; principal; 2020-10-15)
PROC: B2151ZZ Fluoroscopy of Left Heart using Low Osmolar Contrast (ICD-10-PCS; 2020-10-15)
PROC: B2111ZZ Fluoroscopy of Multiple Coronary Arteries using Low Osmolar Contrast (ICD-10-PCS; 2020-10-15)
DX: I25.10 Atherosclerotic heart disease of native coronary artery without angina pectoris (principal); D68.59 Other primary thrombophilia; Z20.822 Contact with and (suspected) exposure to COVID-19; N40.0 Benign prostatic hyperplasia without lower urinary tract symptoms; G25.0 Essential tremor; I10 Essential (primary) hypertension; G47.34 Idiopathic sleep related nonobstructive alveolar hypoventilation; K21.9 Gastro-esophageal reflux disease without esophagitis; E78.00 Pure hypercholesterolemia, unspecified; Z96.651 Presence of right artificial knee joint; Z88.2 Allergy status to sulfonamides; Z88.1 Allergy status to other antibiotic agents; Z91.018 Allergy to other foods; Z86.73 Personal history of transient ischemic attack (TIA), and cerebral infarction without residual deficits; Z90.49 Acquired absence of other specified parts of digestive tract; Z86.718 Personal history of other venous thrombosis and embolism; Z79.01 Long term (current) use of anticoagulants; Z86.711 Personal history of pulmonary embolism
CPT/HCPCS: 36415; 71045; 80053; 83690; 83735; 84484; 85014; 85018; 85025; 85049; 85379; 85610; 85730; 93005; 93458; 93571; 94760; C1769; J0153; J0583; J1644; J2001; Q9967; U0002; U0005

== ENCOUNTER 2021-02-14 07:44 | Outpatient (CLI) | payer MEDICARE | END 2021-02-14 07:45 | disposition home or self-care (01) | LOC: ULT 07:44 | PROVIDERS: ATTEND Internal Medicine Gastroenterology | DX: R10.9 Unspecified abdominal pain (principal) | CPT/HCPCS: 76700 ==

== ENCOUNTER 2021-03-03 09:01 | Outpatient (CLI) | payer MEDICARE ==
[2021-03-03] MEDS ORDERED: Iopamidol 370 76% 100 ML VIAL ONE (09:26)
== END 2021-03-03 09:02 | disposition home or self-care (01) ==
LOC: CT 09:01
PROVIDERS: ATTEND Internal Medicine Gastroenterology
DX: R10.9 Unspecified abdominal pain (principal); N28.1 Cyst of kidney, acquired; M51.36 Other intervertebral disc degeneration, lumbar region; M51.37 Other intervertebral disc degeneration, lumbosacral region; M47.816 Spondylosis without myelopathy or radiculopathy, lumbar region
CPT/HCPCS: 74160; 82565; Q9967

== ENCOUNTER 2021-08-20 09:51 | Outpatient (CLI) | payer MEDICARE | END 2021-08-20 09:52 | disposition home or self-care (01) | LOC: BICCT 09:51 | PROVIDERS: ATTEND Internal Medicine Gastroenterology | DX: R10.9 Unspecified abdominal pain (principal); M47.819 Spondylosis without myelopathy or radiculopathy, site unspecified; M43.17 Spondylolisthesis, lumbosacral region; N28.1 Cyst of kidney, acquired; I70.90 Unspecified atherosclerosis | CPT/HCPCS: 74160; 82565 ==